=== PATIENT | female | born 1930 | race Caucasian/White ===

== ENCOUNTER 2017-02-17 11:39 | Inpatient (IN) | payer OTHER, MEDICARE ==
[~2017-02-17] VITALS: Ht 154.9 cm; Wt 65.0 kg
[~2017-02-17 11:39] MED LIST: ATEN1TAB74 PO; ATOR20TA42 PO; GABA250S PO; HYDR-2768 PO; METH500T PO; OMEP20CA5 PO; PERC7.5T13 PO; REST30CA PO
[2017-02-17 11:41] VITALS: BP 142/65; PULSE 76; RESP 18; TEMP 100.1; O2SAT 94
--- NOTE | 2017-02-17 11:47 | PD ---
HPI Chief Complaint: Fall Time Seen by Provider: 11:47 Travel History International Travel<30 days: No Contact w/Intl Traveler<30days: No Traveled to known affect area: No History of Present Illness HPI 86-year-old female brought in by daughter status post unwitnessed fall this morning. She denies hitting her head or having syncope. Patient has complaints of bilateral mild hip discomfort, but is able to stand with assistance. She denies headache, dizziness, nausea, vomiting, or other symptoms. Daughters feels that her right hand seems clumsy, and she dropped a glass of water earlier prior to arrival. EMS was called at first, and patient was assessed, and blood sugar at that time was 151. Patient arrived with her daughter via POV. Currently patient feels her normal self, however she is a poor historian. She is allergic to bacitracin, neomycin, and polymyxin B. PFSH Past Medical History High Cholesterol: Yes GERD: Yes Genitourinary: Yes (HX. OF UTI) Hypertension: Yes Social History Alcohol Use: Yes Tobacco Use: No Allergies-Medications (Allergen,Severity, Reaction): Coded Allergies: bacitracin (Verified Allergy, Intermediate, Respiratory Failure, 02/17/17) neomycin (Verified Allergy, Intermediate, Respiratory Failure, 02/17/17) polymyxin B (Verified Allergy, Intermediate, Respiratory Failure, 02/17/17 ) Reported Meds & Prescriptions Reported Meds & Active Scripts Active Reported Acidophilus (Probiotic Product) 1 Chew 1 Tab PO DAILY Bactrim DS (Sulfamethoxazole-Trimethoprim) 800-160 Mg Tab 1 Tab PO BID Vitamin B-12 (Cyanocobalamin) 500 Mcg Tab 500 Mcg PO DAILY [Cranberry 8,400mg] 1 Tab PO DAILY Fish Oil 1000 mg ([place]-3 Fatty Acids) 300 Mg-1,000 Mg Cap 1,000 Mg PO DAILY Aspirin Adult Low Strength (Aspirin) 81 Mg Tabdr 81 Mg PO DAILY Calcium + D3 (Calcium Carbonate-Cholecalciferol) 600-200 Mg-Unit Tab 1 Tab PO DAILY Remeron (Mirtazapine) 15 Mg Tab 7.5 Mg PO HS Ms Contin (Morphine Sulfate) 15 Mg Tab 15 Mg PO BID Norvasc (Amlodipine Besylate) 5 Mg Tab 5 Mg PO DAILY Detrol (Tolterodine Tartrate) 2 Mg Tab 2 Mg PO DAILY Benicar (Olmesartan) 20 Mg Tab 20 Mg PO DAILY Tenormin (Atenolol) 50 Mg Tab 50 Mg PO BID Lipitor (Atorvastatin Calcium) 20 Mg Tab 20 Mg PO HS Methyldopa 500 Mg Tab 500 Mg PO BID Gabapentin 300 Mg Cap 300 Mg PO TID Review of Systems ROS Limitations: Poor Historian Except as stated in HPI: all other systems reviewed are Neg General / Constitutional: No: Fever, Chills Eyes: No: Diploplia, Blurred Vision, Photophobia, Blind Spots, Visual changes, Blindness HENT: Positive: Lightheadedness, No: Headaches, Vertigo, Sore Throat, Rhinitis , Rhinorrhea, Congestion, Nosebleed, Neck Stiffness, Neck Pain, Dental Difficulties, Earache Cardiovascular: No: Chest Pain or Discomfort, Palpitations, Irregular Rhythm, Tachycardia, Dyspnea on exertion Respiratory: No: Cough, Shortness of Breath, Wheezing Gastrointestinal: No: Nausea, Vomiting, Diarrhea, Abdominal Pain Genitourinary: No: Dysuria Musculoskeletal: No: Pain Skin: No Rash Neurologic: No: Weakness Psychiatric: No: Depression Endocrine: No: Polydipsia Hematologic/Lymphatic: No: Easy Bruising Physical Exam Narrative GENERAL: Patient appears in no obvious distress. Patient is noted to be able to transfer from wheelchair to bed without significant difficulty. SKIN: Warm and dry. Normal color. Normal turgor. No signs of acute trauma. HEAD: Atraumatic. Normocephalic. Nontender. EYES: Pupils equal and round. No scleral icterus. No injection or drainage. No obvious nystagmus. ENT: No nasal bleeding or discharge. Mucous membranes pink and moist. No dental injury. Pharynx is clear. Airway is patent. NECK: Trachea midline. No bony tenderness or step-off. Range of motion is full and nontender. CARDIOVASCULAR: Regular rate and rhythm. No murmurs gallops or rubs appreciated this time. RESPIRATORY: No accessory muscle use. Clear to auscultation. Breath sounds equal bilaterally. GASTROINTESTINAL: Abdomen soft, non-tender, nondistended. Hepatic and splenic margins not palpable. MUSCULOSKELETAL: Extremities without clubbing, cyanosis, or edema. No obvious deformities. NEUROLOGICAL: Awake and alert. No obvious cranial nerve deficits. Motor grossly within normal limits. Fine motor skills seem somewhat diminished on the right with finger to nose testing, but no obvious findings in the left upper extremity, or lower extremities bilaterally. Patient is able to smile without facial droop. Five out of 5 muscle strength in the arms and legs. Normal speech. PSYCHIATRIC: Appropriate mood and affect; insight and judgment normal. Data Data Last Documented VS Vital Signs Date Time Temp Pulse Resp B/P (MAP) Pulse Ox O2 Delivery O2 Flow Rate FiO2 02/17/17 15:22 68 16 117/56 (76) 92 Room Air 02/17/17 11:41 100.1 Orders Orders Electrocardiogram (02/17/17 11:53) Complete Blood Count With Diff (02/17/17 11:53) Comprehensive Metabolic Panel (02/17/17 11:53) Magnesium (Mg) (02/17/17 11:53) Ckmb (Isoenzyme) Profile (02/17/17 11:53) Troponin I (02/17/17 11:53) Act Partial Throm Time (Ptt) (02/17/17 11:53) Prothrombin Time / Inr (Pt) (02/17/17 11:53) Urinalysis - C+S If Indicated (02/17/17 11:53) Chest, Single Ap (02/17/17 11:53) Ct Brain W/O Iv Contrast(Rout) (02/17/17 11:53) Ecg Monitoring (02/17/17 11:53) Iv Access Insert/Monitor (02/17/17 11:53) Oximetry (02/17/17 11:53) Sodium Chloride 0.9% Flush (Ns Flush) (02/17/17 12:00) Orthostatic Vital Signs (02/17/17 11:53) Sodium Chlorid 0.9% 500 Ml Inj (Ns 500 M (02/17/17 12:00) Cath For Specimen (02/17/17 12:58) CKMB (02/17/17 12:27) CKMB% (02/17/17 12:27) Labs Laboratory Tests Test 02/17/17 12:27 02/17/17 13:15 White Blood Count 15.3 TH/MM3 Red Blood Count 3.75 MIL/MM3 Hemoglobin 11.6 GM/DL Hematocrit 35.2 % Mean Corpuscular Volume 93.8 FL Mean Corpuscular Hemoglobin 30.9 PG Mean Corpuscular Hemoglobin Concent 32.9 % Red Cell Distribution Width 14.1 % Platelet Count 233 TH/MM3 Mean Platelet Volume 7.6 FL Neutrophils (%) (Auto) 82.1 % Lymphocytes (%) (Auto) 10.2 % Monocytes (%) (Auto) 6.0 % Eosinophils (%) (Auto) 1.2 % Basophils (%) (Auto) 0.5 % Neutrophils # (Auto) 12.5 TH/MM3 Lymphocytes # (Auto) 1.6 TH/MM3 Monocytes # (Auto) 0.9 TH/MM3 Eosinophils # (Auto) 0.2 TH/MM3 Basophils # (Auto) 0.1 TH/MM3 CBC Comment DIFF FINAL Differential Comment Prothrombin Time 10.5 SEC Prothromb Time International Ratio 1.0 RATIO Activated Partial Thromboplast Time 24.5 SEC Blood Urea Nitrogen 46 MG/DL Creatinine 2.04 MG/DL Random Glucose 124 MG/DL Total Protein 6.5 GM/DL Albumin 3.1 GM/DL Calcium Level 8.3 MG/DL Magnesium Level 2.7 MG/DL Alkaline Phosphatase 78 U/L Aspartate Amino Transf (AST/SGOT) 30 U/L Alanine Aminotransferase (ALT/SGPT) 30 U/L Total Bilirubin 0.4 MG/DL Sodium Level 135 MEQ/L Potassium Level 5.1 MEQ/L Chloride Level 104 MEQ/L Carbon Dioxide Level 26.6 MEQ/L Anion Gap 4 MEQ/L Estimat Glomerular Filtration Rate 23 ML/MIN Total Creatine Kinase 665 U/L Creatine Kinase MB 3.6 NG/ML Creatine Kinase MB % 0.5 % Troponin I LESS THAN 0.02 NG/ML Urine Color YELLOW Urine Turbidity CLEAR Urine pH 5.5 Urine Specific [place] 1.017 Urine Protein NEG mg/dL Urine Glucose (UA) NEG mg/dL Urine Ketones NEG mg/dL Urine Occult Blood TRACE Urine Nitrite NEG Urine Bilirubin NEG Urine Urobilinogen 2.0 MG/DL Urine Leukocyte Esterase NEG Urine RBC 15 /hpf Urine WBC LESS THAN 1 /hpf Urine Hyaline Casts 3 /lpf Microscopic Urinalysis Comment CULT NOT INDICATED MDM Medical Decision Making Medical Screen Exam Complete: Yes Emergency Medical Condition: Yes Medical Record Reviewed: Yes Differential Diagnosis Syncopal episode. Dehydration. TIA. Narrative Course Patient appears medically stable at time of exam. EKG and chest x-ray are ordered. X-rays of the hips and pelvis are not felt warranted based on my exam. CT of the head is ordered. Labs ordered including CBC, CMP, cardiac panel, and proBNP. Urinalysis as well. Patient is given 500 mg normal saline bolus. Orthostatics were ordered. CBC is remarkable for leukocytosis of 15.3. Coagulation studies are normal. CMP shows sodium 135, anion gap of 4, BUN of 46, creatinine of 2.04 which is significantly elevated from previous labs. GFR is estimated at 23. Random glucose is 124, calcium is 8.3, magnesium is 2.7, troponin is less than 0.02, creatinine kinase however is elevated at 665. Patient is discussed with Dr. Marroquin, who sees the patient as well with me. Patient currently on Bactrim DS twice a day 5 days for urinalysis. Urinalysis is improved today. Attempt to inability patient is performed showing the patient to be very unsteady, with noted jerky movements. This was visualized by myself, nursing staff, and Dr. Marroquin. It's at this point the patient was felt to need admission for observation, physical therapy review, and possible MRI. Diagnosis Primary Impression: Syncope and collapse Additional Impressions: Renal insufficiency Unable to ambulate Admitting Information Admitting Physician Requests: Observation Additional Instructions: Urinalysis is improved today. Patient is felt stable for discharge home with close follow-up. Patient is encouraged to drink plenty of fluids. Patient should follow-up with her primary care physician next week or return to emergency department as needed. Med/Other Pt SpecificInfo: No Change to Meds Condition: Stable Wilfrido Jones Feb 17, 2017 11:47
[2017-02-17] MEDS ORDERED: SODIUM CHLORID 0.9% 500 ML INJ 500 ML IV ONE (12:00)
[2017-02-17] MEDS ORDERED: SODIUM CHLORIDE 0.9% FLUSH 10 ML FLUSH IVF PRN (12:00)
[2017-02-17 12:15] VITALS: BP_SYST 128; BP_SYST 132; BP_SYST 146; BP_DIAS 58; BP_DIAS 59; BP_DIAS 63; RESP 19; RESP 22; RESP 26
[2017-02-17] MEDS ORDERED: FISH100020 PO (12:34)
[2017-02-17] MEDS ORDERED: MS C15TA7 PO (12:34)
[2017-02-17] MEDS ORDERED: CALC600T10 PO (12:34)
[2017-02-17] MEDS ORDERED: GABA300C5 PO (12:34)
[2017-02-17] MEDS ORDERED: REME15TA PO (12:34)
[2017-02-17] MEDS ORDERED: OLME1TAB PO (12:34)
[2017-02-17] MEDS ORDERED: ASPI81TA16 PO (12:34)
[2017-02-17] MEDS ORDERED: AMLO5 PO (12:34)
[2017-02-17] MEDS ORDERED: PROB1CHW2 PO (12:34)
[2017-02-17] MEDS ORDERED: BACT800T5 PO (12:34)
[2017-02-17] MEDS ORDERED: METH500T PO (12:34)
[2017-02-17] MEDS ORDERED: DETR2TAB PO (12:34)
[2017-02-17] MEDS ORDERED: VITA500T4 PO (12:34)
[2017-02-17] MEDS ORDERED: ATEN1TAB74 PO (12:34)
[2017-02-17] MEDS ORDERED: CRANBERRY 8400 MG PO (12:34)
[2017-02-17] MEDS ORDERED: LIPI20TA PO (12:34)
[2017-02-17 12:40] LABS: AUTOMATED NEUTROPHIL # 12.5 TH/MM3 (1.8-7.7); BASOPHIL # 0.1 TH/MM3 (0-0.2); BASOPHIL % 0.5 % (0.0-2.0); EOSINOPHIL # 0.2 TH/MM3 (0-0.4); EOSINOPHIL % 1.2 % (0.0-4.0); HEMATOCRIT 35.2 % (35.0-46.0); HEMO FLAGS DIFF FINAL; LYMPH % 10.2 % (9.0-44.0); LYMPHOCYTE # 1.6 TH/MM3 (1.0-4.8); MEAN CELL VOLUME 93.8 FL (80.0-100.0); MEAN CORPUSCULAR HEMOGLOBIN 30.9 PG (27.0-34.0); MEAN CORPUSCULAR HGB CONC 32.9 % (32.0-36.0); NEUT % 82.1 % (16.0-70.0); PLATELET COUNT 233 TH/MM3 (150-450); RED BLOOD COUNT 3.75 MIL/MM3 (4.00-5.30); RED CELL DISTRIBUTION WIDTH 14.1 % (11.6-17.2); WHITE BLOOD COUNT 15.3 TH/MM3 (4.0-11.0)
[2017-02-17 12:53] LABS: APTT (PATIENT) 24.5 SEC (24.3-30.1); PROTHROMBIN TIME - PATIENT 10.5 SEC (9.8-11.6)
[2017-02-17 12:59] LABS: ANION GAP 4 MEQ/L (5-15); AST (GOT) 30 U/L (15-37); BICARBONATE 26.6 MEQ/L (21.0-32.0); BLOOD UREA NITROGEN 46 MG/DL (7-18); CHLORIDE 104 MEQ/L (98-107); GLOMERULAR FILTRATION RATE 23 ML/MIN (>89); MAGNESIUM 2.7 MG/DL (1.5-2.5); POTASSIUM 5.1 MEQ/L (3.5-5.1); SODIUM (NA) 135 MEQ/L (136-145)
[2017-02-17 13:00] LABS: ALT (GPT) 30 U/L (10-53)
[2017-02-17 13:03] LABS: ALKALINE PHOSPHATASE 78 U/L (45-117); CREATINE KINASE 665 U/L (26-192); TOTAL BILIRUBIN ADULT 0.4 MG/DL (0.2-1.0)
--- NOTE | 2017-02-17 13:03 | RADRPT ---
EXAM DATE/TIME: 02/17/2017 12:36 [facility] COMPARISON: No previous studies available for comparison. INDICATIONS : Head pain due to syncope. RADIATION DOSE: 35.56 CTDIvol (mGy) MEDICAL HISTORY : Hypertension. Reflex. SURGICAL HISTORY : None. ENCOUNTER: Initial ACUITY: 1 day PAIN SCALE: 4/10 LOCATION: Bilateral cranial TECHNIQUE: Multiple contiguous axial images were obtained of the head. Using automated exposure control and adj ustment of the mA and/or kV according to patient size, radiation dose was kept as low as reasonably a chievable to obtain optimal diagnostic quality images. DICOM format image data is available electro nically for review and comparison. FINDINGS: There is marked central and cortical atrophy with dilatation of ventricular and sulcal spaces. There is no parenchymal hemorrhage, acute infarction or mass lesion identified. There are no extra-axial fluid collections appreciated. The posterior fossa is unremarkable with midline fourth ventricle. T he portion of the orbits and paranasal sinuses visualized are unremarkable. CONCLUSION: No acute disease. Gal Mitchell MD on February 17, 2017 at 13:01 Board Certified Radiologist. This report was verified electronically.
--- NOTE | 2017-02-17 13:08 | RADRPT ---
EXAM DATE/TIME: 02/17/2017 12:49 [facility] COMPARISON: No previous studies available for comparison. INDICATIONS : Dizziness and lightheaded. MEDICAL HISTORY : None. SURGICAL HISTORY : None. ENCOUNTER: Initial ACUITY: 1 day PAIN SCORE: 0/10 LOCATION: Bilateral chest FINDINGS: A single view of the chest demonstrates the lungs to be symmetrically aerated without evidence of mas s, infiltrate or effusion. The cardiomediastinal contours are unremarkable. Osseous structures are intact. CONCLUSION: 1. No acute cardiopulmonary disease. Aleksandar Simpson MD on February 17, 2017 at 13:05 Board Certified Radiologist. This report was verified electronically.
[2017-02-17 13:16] LABS: CKMB 3.6 NG/ML (0.5-3.6)
[2017-02-17 14:47] LABS: BLOOD, URINE TRACE (NEG); COMMENT (UR) CULT NOT INDICATED; CULTURE IF INDICATED CULT NOT INDICATED; GLUCOSE,URINE NEG (NEG); HYALINE CAST, URINE 3 /lpf (RARE); KETONE, URINE NEG (NEG); NITRITE,URINE NEG (NEG); PH, URINE 5.5 (5.0-8.5); URINE COLOR YELLOW (YELLW/STRAW)
--- NOTE | 2017-02-17 15:04 | PD ---
Data Data Last Documented VS Vital Signs Date Time Temp Pulse Resp B/P (MAP) Pulse Ox O2 Delivery O2 Flow Rate FiO2 02/17/17 12:15 73 19 146/63 (90) 74 26 132/59 (83) 77 22 128/58 (81) 02/17/17 11:41 100.1 94 Orders Orders Electrocardiogram (02/17/17 11:53) Complete Blood Count With Diff (02/17/17 11:53) Comprehensive Metabolic Panel (02/17/17 11:53) Magnesium (Mg) (02/17/17 11:53) Ckmb (Isoenzyme) Profile (02/17/17 11:53) Troponin I (02/17/17 11:53) Act Partial Throm Time (Ptt) (02/17/17 11:53) Prothrombin Time / Inr (Pt) (02/17/17 11:53) Urinalysis - C+S If Indicated (02/17/17 11:53) Chest, Single Ap (02/17/17 11:53) Ct Brain W/O Iv Contrast(Rout) (02/17/17 11:53) Ecg Monitoring (02/17/17 11:53) Iv Access Insert/Monitor (02/17/17 11:53) Oximetry (02/17/17 11:53) Sodium Chloride 0.9% Flush (Ns Flush) (02/17/17 12:00) Orthostatic Vital Signs (02/17/17 11:53) Sodium Chlorid 0.9% 500 Ml Inj (Ns 500 M (02/17/17 12:00) Cath For Specimen (02/17/17 12:58) CKMB (02/17/17 12:27) CKMB% (02/17/17 12:27) Ed Discharge Order (02/17/17 14:55) Labs Laboratory Tests Test 02/17/17 12:27 02/17/17 13:15 White Blood Count 15.3 TH/MM3 Red Blood Count 3.75 MIL/MM3 Hemoglobin 11.6 GM/DL Hematocrit 35.2 % Mean Corpuscular Volume 93.8 FL Mean Corpuscular Hemoglobin 30.9 PG Mean Corpuscular Hemoglobin Concent 32.9 % Red Cell Distribution Width 14.1 % Platelet Count 233 TH/MM3 Mean Platelet Volume 7.6 FL Neutrophils (%) (Auto) 82.1 % Lymphocytes (%) (Auto) 10.2 % Monocytes (%) (Auto) 6.0 % Eosinophils (%) (Auto) 1.2 % Basophils (%) (Auto) 0.5 % Neutrophils # (Auto) 12.5 TH/MM3 Lymphocytes # (Auto) 1.6 TH/MM3 Monocytes # (Auto) 0.9 TH/MM3 Eosinophils # (Auto) 0.2 TH/MM3 Basophils # (Auto) 0.1 TH/MM3 CBC Comment DIFF FINAL Differential Comment Prothrombin Time 10.5 SEC Prothromb Time International Ratio 1.0 RATIO Activated Partial Thromboplast Time 24.5 SEC Blood Urea Nitrogen 46 MG/DL Creatinine 2.04 MG/DL Random Glucose 124 MG/DL Total Protein 6.5 GM/DL Albumin 3.1 GM/DL Calcium Level 8.3 MG/DL Magnesium Level 2.7 MG/DL Alkaline Phosphatase 78 U/L Aspartate Amino Transf (AST/SGOT) 30 U/L Alanine Aminotransferase (ALT/SGPT) 30 U/L Total Bilirubin 0.4 MG/DL Sodium Level 135 MEQ/L Potassium Level 5.1 MEQ/L Chloride Level 104 MEQ/L Carbon Dioxide Level 26.6 MEQ/L Anion Gap 4 MEQ/L Estimat Glomerular Filtration Rate 23 ML/MIN Total Creatine Kinase 665 U/L Creatine Kinase MB 3.6 NG/ML Creatine Kinase MB % 0.5 % Troponin I LESS THAN 0.02 NG/ML Urine Color YELLOW Urine Turbidity CLEAR Urine pH 5.5 Urine Specific [place] 1.017 Urine Protein NEG mg/dL Urine Glucose (UA) NEG mg/dL Urine Ketones NEG mg/dL Urine Occult Blood TRACE Urine Nitrite NEG Urine Bilirubin NEG Urine Urobilinogen 2.0 MG/DL Urine Leukocyte Esterase NEG Urine RBC 15 /hpf Urine WBC LESS THAN 1 /hpf Urine Hyaline Casts 3 /lpf Microscopic Urinalysis Comment CULT NOT INDICATED MDM Supervised Visit with DESTINY: Yes Narrative Course The history, exam, and medical decision-making in the associated mid-level provider note were completed with my assistance. I reviewed and agree with the findings presented. I attest that I had a [id number] encounter with the patient on the same day, and personally performed and documented my assessment and findings in the medical record. *My assessment and Findings: Send 86 year-old woman presents to the emergency department after fall. Unwitnessed. Possible syncopal and collapse. Looks well. Being treated for urinary tract infection. Labs reveal elevated creatinine. Patient states she' s been told she has bad kidney function on her labs in the past. No recent labs for comparison here. Recommend close outpatient follow-up. Diagnosis Primary Impression: Syncope and collapse Additional Impression: Renal insufficiency Referrals: Primary Care Physician Patient Instructions: General Instructions, Dehydration (ED), Near Syncope (ED) Additional Instruction: Urinalysis is improved today. Patient is felt stable for discharge home with close follow-up. Patient is encouraged to drink plenty of fluids. Patient should follow-up with her primary care physician next week or return to emergency department as needed. Disposition: 01 DISCHARGE HOME Condition: Stable Gal Marroquin MD Feb 17, 2017 15:04
[2017-02-17 15:22] VITALS: BP 117/56; PULSE 68; RESP 16; O2SAT 92
[2017-02-17] MEDS ORDERED: SODIUM CHLORIDE 0.9% FLUSH 10 ML FLUSH IV FLUSH PRN (16:00)
[2017-02-17] MEDS ORDERED: BISACODYL 10 MG SUPP RECTAL PRN (16:00)
[2017-02-17] MEDS ORDERED: NALOXONE HCL 0.4 MG/ML AMP IV PUSH PRN (16:00)
[2017-02-17] MEDS ORDERED: LACTULOSE SYRUP 20 GM/30 ML CUP PO PRN (16:00)
[2017-02-17] MEDS ORDERED: MAGNESIUM HYDROXIDE SUSP 30 ML CUP PO PRN (16:00)
[2017-02-17] MEDS ORDERED: SENNOSIDES 8.6 MG TAB PO PRN (16:00)
[2017-02-17] MEDS: SODIUM CHLOR 0.45% 1000 ML INJ 1,000 ML IV SCH ×2 (16:30→18:55)
--- NOTE | 2017-02-17 17:20 | RADRPT ---
EXAM DATE/TIME: 02/17/2017 16:33 [facility] COMPARISON: No previous studies available for comparison. INDICATIONS : Syncope. MEDICAL HISTORY : Hypercholesterolemia. Hypertension. Gastroesophageal reflux disease. COPD. SURGICAL HISTORY : Tonsillectomy. Mastoid operations bilateral. ENCOUNTER: Initial ACUITY: 1 day PAIN SCORE: 0/10 LOCATION: Bilateral neck PEAK SYSTOLIC VELOCITIES (cm/sec): ICA/CCA RATIO: Right: 1.6 Left: 1.5 ICA: Right: 132 Left: 124 CCA: Right: 84 Left: 84 ECA: Right: 124 Left: 155 VERTEBRAL: Right: 105 antegrade Left: 53 antegrade Elevated flow velocities and ICA/CCA ratios have been found to correlate with increased degrees of vessel stenosis, calculated as percentage of diameter relative to a normal segment of distal ICA/CCA FINDINGS: RIGHT CAROTID: No significant stenosis is visualized. Moderate diffuse atherosclerotic disease. The waveforms are w ithin normal limits. LEFT CAROTID: No significant stenosis is visualized. Moderate diffuse atherosclerotic disease. The waveforms are within normal limits. VERTEBRAL ARTERIES: Antegrade flow is seen in both vertebral arteries. MISCELLANEOUS: None. CONCLUSION: There is moderate atherosclerotic disease. No definite two-dimensional or hemodynamic significant yaneth nosis is identified. Gal Mitchell MD on February 17, 2017 at 17:17 Board Certified Radiologist. This report was verified electronically.
[2017-02-17 18:31] VITALS: BP 138/65; PULSE 70; RESP 18; TEMP 98.6; O2SAT 91
--- NOTE | 2017-02-17 20:00 | HHI.HP ---
[facility] Primary Care Physician Angel Modi MD Admission Diagnosis Syncope/Unable to Ambulate/Increased Creatinine Diagnoses: Travel History International Travel<30 Days: No Contact w/Intl Traveler <30 Da: No Traveled to Known Affected Are: No History of Present Illness 86-year-old female with a history of chronic pain, recurrent UTIs, hypertension , hyperlipidemia, GERD, who presents having been found by daughter this morning around 5 AM. Vision is a poor historian. She says she was lightheaded last night, and is not sure what happened. She does say that she began Bactrim for a supposed UTI on Monday, her symptoms being increased urination, without dysuria. Says that increased urination has improved. She denies any fevers, chills, chest pain, shortness of breath. She does report some lightheadedness walking to the bathroom with assistance today. She denies taking any extra pain medication, however cannot tell me exactly how much medication she takes. I spoke with daughter outside room and she said that patient may have been taking Dilaudid that she was prescribed in the past for pain. Review of Systems Performed and negative except for history of present illness and past medical history. Past Family Social History Past Medical History Hypertension Chronic pain GERD History of recurrent UTIs Past Surgical History Patient had right wrist surgery for de Quervain's tenosynovitis. hip replacement. Reported Medications Reported Meds & Active Scripts Active Reported Acidophilus (Probiotic Product) 1 Chew 1 Tab PO DAILY Bactrim DS (Sulfamethoxazole-Trimethoprim) 800-160 Mg Tab 1 Tab PO BID Vitamin B-12 (Cyanocobalamin) 500 Mcg Tab 500 Mcg PO DAILY [Cranberry 8,400mg] 1 Tab PO DAILY Fish Oil 1000 mg ([place]-3 Fatty Acids) 300 Mg-1,000 Mg Cap 1,000 Mg PO DAILY Aspirin Adult Low Strength (Aspirin) 81 Mg Tabdr 81 Mg PO DAILY Calcium + D3 (Calcium Carbonate-Cholecalciferol) 600-200 Mg-Unit Tab 1 Tab PO DAILY Remeron (Mirtazapine) 15 Mg Tab 7.5 Mg PO HS Ms Contin (Morphine Sulfate) 15 Mg Tab 15 Mg PO BID Norvasc (Amlodipine Besylate) 5 Mg Tab 5 Mg PO DAILY Detrol (Tolterodine Tartrate) 2 Mg Tab 2 Mg PO DAILY Benicar (Olmesartan) 20 Mg Tab 20 Mg PO DAILY Tenormin (Atenolol) 50 Mg Tab 50 Mg PO BID Lipitor (Atorvastatin Calcium) 20 Mg Tab 20 Mg PO HS Methyldopa 500 Mg Tab 500 Mg PO BID Gabapentin 300 Mg Cap 300 Mg PO TID Allergies: Coded Allergies: bacitracin (Verified Allergy, Intermediate, Respiratory Failure, 02/17/17) neomycin (Verified Allergy, Intermediate, Respiratory Failure, 02/17/17) polymyxin B (Verified Allergy, Intermediate, Respiratory Failure, 02/17/17 ) Family History Mother from cancer. Father at a very old age from unknown causes. Social History Patient reports one glass of wine per night.denies any smoking. Denies any illicit drugs. Physical Exam Vital Signs Vital Signs Date Time Temp Pulse Resp B/P (MAP) Pulse Ox O2 Delivery O2 Flow Rate FiO2 02/17/17 18:31 98.6 70 18 138/65 (89) 91 02/17/17 17:55 02/17/17 15:22 68 16 117/56 (76) 92 Room Air 02/17/17 12:15 73 19 146/63 (90) 74 26 132/59 (83) 77 22 128/58 (81) 02/17/17 11:41 100.1 76 18 142/65 (90) 94 Physical Exam GENERAL: This is a well-nourished, well-developed patient, in no apparent distress. She is oriented to place, year, not to date. SKIN: No rashes, ecchymoses or lesions. Cool and dry. HEAD: Atraumatic. Normocephalic. No temporal or scalp tenderness. EYES: Pupils equal round and reactive. Extraocular motions intact. No scleral icterus. No injection or drainage. ENT: Nose without bleeding, purulent drainage or septal hematoma. Throat without erythema, tonsillar hypertrophy or exudate. Uvula midline. Airway patent. NECK: Trachea midline. No JVD or lymphadenopathy. Supple, nontender, no meningeal signs. CARDIOVASCULAR: Regular rate and rhythm without murmurs, gallops, or rubs. RESPIRATORY: Clear to auscultation. Breath sounds equal bilaterally. No wheezes , rales, or rhonchi. GASTROINTESTINAL: Abdomen soft, non-tender, nondistended. No hepato-splenomegaly , or palpable masses. No guarding. MUSCULOSKELETAL: Extremities without clubbing, cyanosis, or edema. No joint tenderness, effusion, or edema noted. No calf tenderness. Negative Homans sign bilaterally. NEUROLOGICAL: Awake and alert. Cranial nerves II through XII intact. Motor and sensory grossly within normal limits. Five out of 5 muscle strength in all muscle groups. Normal speech. Laboratory Laboratory Tests Test 02/17/17 12:27 02/17/17 13:15 White Blood Count 15.3 Red Blood Count 3.75 Hemoglobin 11.6 Hematocrit 35.2 Mean Corpuscular Volume 93.8 Mean Corpuscular Hemoglobin 30.9 Mean Corpuscular Hemoglobin Concent 32.9 Red Cell Distribution Width 14.1 Platelet Count 233 Mean Platelet Volume 7.6 Neutrophils (%) (Auto) 82.1 Lymphocytes (%) (Auto) 10.2 Monocytes (%) (Auto) 6.0 Eosinophils (%) (Auto) 1.2 Basophils (%) (Auto) 0.5 Neutrophils # (Auto) 12.5 Lymphocytes # (Auto) 1.6 Monocytes # (Auto) 0.9 Eosinophils # (Auto) 0.2 Basophils # (Auto) 0.1 CBC Comment DIFF FINAL Differential Comment Prothrombin Time 10.5 Prothromb Time International Ratio 1.0 Activated Partial Thromboplast Time 24.5 Blood Urea Nitrogen 46 Creatinine 2.04 Random Glucose 124 Total Protein 6.5 Albumin 3.1 Calcium Level 8.3 Magnesium Level 2.7 Alkaline Phosphatase 78 Aspartate Amino Transf (AST/SGOT) 30 Alanine Aminotransferase (ALT/SGPT) 30 Total Bilirubin 0.4 Sodium Level 135 Potassium Level 5.1 Chloride Level 104 Carbon Dioxide Level 26.6 Anion Gap 4 Estimat Glomerular Filtration Rate 23 Total Creatine Kinase 665 Creatine Kinase MB 3.6 Creatine Kinase MB % 0.5 Troponin I LESS THAN 0.02 Urine Color YELLOW Urine Turbidity CLEAR Urine pH 5.5 Urine Specific [place] 1.017 Urine Protein NEG Urine Glucose (UA) NEG Urine Ketones NEG Urine Occult Blood TRACE Urine Nitrite NEG Urine Bilirubin NEG Urine Urobilinogen 2.0 Urine Leukocyte Esterase NEG Urine RBC 15 Urine WBC LESS THAN 1 Urine Hyaline Casts 3 Microscopic Urinalysis Comment CULT NOT INDICATED Urine Opiates Screen POS Urine Barbiturates Screen NEG Urine Amphetamines Screen NEG Urine Benzodiazepines Screen NEG Urine Cocaine Screen NEG Urine Cannabinoids Screen NEG Result Diagram: 02/17/17 1227 02/17/17 1227 Imaging Last Impressions Head CT 02/17/17 1153 Signed Impressions: Service Date/Time: Friday, February 17, 2017 12:36 - CONCLUSION: No acute disease. Gal Mitchell MD Chest X-Ray 02/17/17 1153 Signed Impressions: Service Date/Time: Friday, February 17, 2017 12:49 - CONCLUSION: 1. No acute cardiopulmonary disease. Aleksandar Simpson MD Carotid Artery Ultrasound 02/17/17 0000 Signed Impressions: Service Date/Time: Friday, February 17, 2017 16:33 - CONCLUSION: There is moderate atherosclerotic disease. No definite two-dimensional or hemodynamic significant stenosis is identified. MD Margarita Phillips VTE Risk Assessment Caprini VTE Risk Assessment: Mod/High Risk (score >= 2) Caprini Risk Assessment Model Point Value = 1 Point Value = 2 Point Value = 3 Point Value = 5 Age 41-60 Minor surgery BMI > 25 kg/m2 Swollen legs Varicose veins or History of unexplained or recurrent spontaneous Oral contraceptives or hormone replacement Sepsis (< 1 month) Serious lung disease, including pneumonia (< 1 month) Abnormal pulmonary function Acute myocardial infarction Congestive heart failure (< 1 month) History of inflammatory bowel disease Medical patient at bed rest Age 61-74 Arthroscopic surgery Major open surgery (> 45 min) Laparoscopic surgery (> 45 min) Malignancy Confined to bed (> 72 hours) Immobilizing plaster cast Central venous access Age >= 75 History of VTE Family history of VTE Factor V Leiden Prothrombin [id number] Lupus anticoagulant Anticardiolipin antibodies Elevated serum homocysteine Heparin-induced thrombocytopenia Other congenital or acquired thrombophilia Stroke (< 1 month) Elective arthroplasty Hip, pelvis, or leg fracture Acute spinal cord injury (< 1 month) Prophylaxis Regimen Total Risk Factor Score Risk Level Prophylaxis Regimen 0-1 Low Early ambulation 2 Moderate Order ONE of the following: *Sequential Compression Device (SCD) *Heparin 5000 units SQ BID 3-4 Higher Order ONE of the following medications: *Heparin 5000 units SQ TID *Enoxaparin/Lovenox 40 mg SQ daily (WT < 150 kg, CrCl > 30 mL/min) *Enoxaparin/Lovenox 30 mg SQ daily (WT < 150 kg, CrCl > 10-29 mL/min) *Enoxaparin/Lovenox 30 mg SQ BID (WT < 150 kg, CrCl > 30 mL/min) AND/OR *Sequential Compression Device (SCD) 5 or more Highest Order ONE of the following medications: *Heparin 5000 units SQ TID (Preferred with Epidurals) *Enoxaparin/Lovenox 40 mg SQ daily (WT < 150 kg, CrCl > 30 mL/min) *Enoxaparin/Lovenox 30 mg SQ daily (WT < 150 kg, CrCl > 10-29 mL/min) *Enoxaparin/Lovenox 30 mg SQ BID (WT < 150 kg, CrCl > 30 mL/min) AND *Sequential Compression Device (SCD) Assessment and Plan Assessment and Plan //Status post unwitnessed fall/syncopal episode. //Generalized weakness. -Syncopal workup with carotid ultrasound, echocardiogram. Suspect this is likely secondary to polypharmacy, gabapentin toxicity secondary to renal failure. //Possible acute kidney injury. -Creatinine 2. Unknown baseline. Urinalysis without signs of infection. Possibly secondary to over controlled blood pressure/dehydration. Will start on IV fluids. //Elevated CK. In the 600s. Possibly secondary to muscle injury from fall. Patient was found down. We will continue to monitor. Start IV fluids. //Leukocytosis. Leukocytes 15 on admission. This is likely secondary to fall. Urinalysis does not appear infectious. Patient denies any urinary symptoms. Patient has no symptoms of infection. We'll continue to monitor. //Polypharmacy. -Patient is on multiple narcotics, gabapentin which together could be contributing to her symptoms. Patient is agreeable to home health for medication management. //Recent UTI. Patient's only symptom was increased urination. I doubt this is a UTI, was likely incontinence. We'll hold off on patient's Detrol as well. Urinalysis here did not appear infectious. Hold off on antibiotics for now. //Hypertension. The pressure. Acceptable, however below baseline. We'll hold off on blood pressure meds for now. Expect she is not on realistic doses of her medications at home due to noncompliance. We'll recheck Tomorrow morning. Chronic. //GERD. Chronic. Continue PPI Discussed Condition With Patient, nurse, daughter at bedside, ED physician Physician Certification 2 Midnight Certification Type: Admission for Inpatient Services Order for Inpatient Services The services are ordered in accordance with Medicare regulations or non- Medicare payer requirements, as applicable. In the case of services not specified as inpatient-only, they are appropriately provided as inpatient services in accordance with the 2-midnight benchmark. Estimated LOS (days): 2 days is the estimated time the patient will need to remain in the hospital, assuming treatment plan goals are met and no additional complications. Post-Hospital Plan: Not yet determined Braulio Novoa MD Feb 17, 2017 19:59
[2017-02-17] MEDS: SODIUM CHLORIDE 0.9% FLUSH 10 ML FLUSH IV FLUSH SCH (20:44)
[2017-02-17 20:51] LABS: CKMB 2.3 NG/ML (0.5-3.6)
[2017-02-18] VITALS: BP 126/55; PULSE 66; RESP 20; TEMP 98.1; O2SAT 94
[2017-02-18 01:26] LABS: CREATINE KINASE 679 U/L (26-192)
[2017-02-18 01:41] LABS: CKMB 1.8 NG/ML (0.5-3.6)
[2017-02-18 04:00] VITALS: BP 116/63; PULSE 68; RESP 20; TEMP 98.7; O2SAT 92
[2017-02-18] MEDS: SODIUM CHLOR 0.45% 1000 ML INJ 1,000 ML IV SCH ×2 (05:18→18:38)
[2017-02-18 08:25] VITALS: BP 146/71; PULSE 73; RESP 20; TEMP 98.5; O2SAT 93
[2017-02-18] MEDS: PANTOPRAZOLE SOD 20 MG DELAYED RELEASE TAB PO SCH (08:28)
[2017-02-18] MEDS: SODIUM CHLORIDE 0.9% FLUSH 10 ML FLUSH IV FLUSH SCH ×2 (08:28→20:00)
[2017-02-18 08:38] LABS: AUTOMATED NEUTROPHIL # 8.6 TH/MM3 (1.8-7.7); BASOPHIL % 0.4 % (0.0-2.0); EOSINOPHIL # 0.1 TH/MM3 (0-0.4); EOSINOPHIL % 1.4 % (0.0-4.0); HEMATOCRIT 30.9 % (35.0-46.0); HEMO FLAGS DIFF FINAL; LYMPHOCYTE # 1.3 TH/MM3 (1.0-4.8); MEAN CELL VOLUME 93.2 FL (80.0-100.0); MEAN CORPUSCULAR HEMOGLOBIN 31.3 PG (27.0-34.0); MEAN CORPUSCULAR HGB CONC 33.6 % (32.0-36.0); MONO % 5.4 % (0.0-8.0); NEUT % 80.8 % (16.0-70.0); PLATELET COUNT 218 TH/MM3 (150-450); RED BLOOD COUNT 3.31 MIL/MM3 (4.00-5.30); RED CELL DISTRIBUTION WIDTH 14.1 % (11.6-17.2); WHITE BLOOD COUNT 10.6 TH/MM3 (4.0-11.0)
[2017-02-18] MEDS ORDERED: ASPIRIN EC 81 MG TABEC PO SCH (09:00)
[2017-02-18 09:03] LABS: ALT (GPT) 24 U/L (10-53); ANION GAP 8 MEQ/L (5-15); AST (GOT) 29 U/L (15-37); BICARBONATE 22.4 MEQ/L (21.0-32.0); BLOOD UREA NITROGEN 38 MG/DL (7-18); CHLORIDE 108 MEQ/L (98-107); GLOMERULAR FILTRATION RATE 34 ML/MIN (>89); POTASSIUM 4.4 MEQ/L (3.5-5.1); SODIUM (NA) 138 MEQ/L (136-145)
[2017-02-18 09:06] LABS: ALKALINE PHOSPHATASE 74 U/L (45-117); TOTAL BILIRUBIN ADULT 0.7 MG/DL (0.2-1.0)
--- NOTE | 2017-02-18 09:39 | HHI.PR ---
Subjective Remarks This is a pleasant 86 y/o female admitted 02/17/17 she has Chronic pain, Recurrent UTI, Hypertension, Hyperlipidemia, GERD, he was on Bactrim as outpatient for UTI, status post Fall/Syncope, workup started, also probable acute on chronic kidney injury, Rhabdomyolysis, Leukocytosis, Polypharmacy, seen in her bedroom in the presence of her Daughter Mrs. Marivel Blanco complaint of left hip pain, awaiting final recommendations by PT for discharge. blood pressure uncontrolled at this time, but was controlled in am will continue Objective Vital Signs Date Time Temp Pulse Resp B/P (MAP) Pulse Ox O2 Delivery O2 Flow Rate FiO2 02/18/17 08:25 98.5 73 20 146/71 (96) 93 02/18/17 04:00 98.7 68 20 116/63 (80) 92 02/18/17 00:00 98.1 66 20 126/55 (78) 94 02/17/17 18:31 98.6 70 18 138/65 (89) 91 02/17/17 17:55 02/17/17 15:22 68 16 117/56 (76) 92 Room Air 02/17/17 12:15 73 19 146/63 (90) 74 26 132/59 (83) 77 22 128/58 (81) 02/17/17 11:41 100.1 76 18 142/65 (90) 94 I/O 02/17/17 02/17/17 02/17/17 02/18/17 02/18/17 02/18/17 07:00 15:00 23:00 07:00 15:00 23:00 Intake Total 500 ml Balance 500 ml Intake IV Total 500 ml # Voids 1 1 Result Diagram: 02/18/17 0755 02/18/17 0755 Imaging Last Impressions Head CT 02/17/17 1153 Signed Impressions: Service Date/Time: Friday, February 17, 2017 12:36 - CONCLUSION: No acute disease. Gal Mitchell MD Chest X-Ray 02/17/17 1153 Signed Impressions: Service Date/Time: Friday, February 17, 2017 12:49 - CONCLUSION: 1. No acute cardiopulmonary disease. Aleksandar Simpson MD Carotid Artery Ultrasound 02/17/17 0000 Signed Impressions: Service Date/Time: Friday, February 17, 2017 16:33 - CONCLUSION: There is moderate atherosclerotic disease. No definite two-dimensional or hemodynamic significant stenosis is identified. Gal Mitchell MD Procedures None Other Results Laboratory Tests Test 02/17/17 12:27 02/17/17 13:15 02/18/17 00:52 02/18/17 07:55 Prothrombin Time 10.5 SEC Prothromb Time International Ratio 1.0 RATIO Activated Partial Thromboplast Time 24.5 SEC Blood Urea Nitrogen 46 MG/DL 38 MG/DL Creatinine 2.04 MG/DL 1.45 MG/DL Random Glucose 124 MG/DL 93 MG/DL Total Protein 6.5 GM/DL 6.0 GM/DL Albumin 3.1 GM/DL 2.8 GM/DL Calcium Level 8.3 MG/DL 8.4 MG/DL Magnesium Level 2.7 MG/DL Alkaline Phosphatase 78 U/L 74 U/L Aspartate Amino Transf (AST/SGOT) 30 U/L 29 U/L Alanine Aminotransferase (ALT/SGPT) 30 U/L 24 U/L Total Bilirubin 0.4 MG/DL 0.7 MG/DL Sodium Level 135 MEQ/L 138 MEQ/L Potassium Level 5.1 MEQ/L 4.4 MEQ/L Chloride Level 104 MEQ/L 108 MEQ/L Carbon Dioxide Level 26.6 MEQ/L 22.4 MEQ/L Troponin I LESS THAN 0.02 NG/ML Urine Color YELLOW Urine Turbidity CLEAR Urine pH 5.5 Urine Specific [place] 1.017 Urine Protein NEG mg/dL Urine Glucose (UA) NEG mg/dL Urine Ketones NEG mg/dL Urine Occult Blood TRACE Urine Nitrite NEG Urine Bilirubin NEG Urine Urobilinogen 2.0 MG/DL Urine Leukocyte Esterase NEG Urine RBC 15 /hpf Urine WBC LESS THAN 1 /hpf Urine Hyaline Casts 3 /lpf Microscopic Urinalysis Comment CULT NOT INDICATED Urine Opiates Screen POS Urine Barbiturates Screen NEG Urine Amphetamines Screen NEG Urine Benzodiazepines Screen NEG Urine Cocaine Screen NEG Urine Cannabinoids Screen NEG Total Creatine Kinase 679 U/L Creatine Kinase MB 1.8 NG/ML Creatine Kinase MB % 0.3 % White Blood Count 10.6 TH/MM3 Red Blood Count 3.31 MIL/MM3 Hemoglobin 10.4 GM/DL Hematocrit 30.9 % Mean Corpuscular Volume 93.2 FL Mean Corpuscular Hemoglobin 31.3 PG Mean Corpuscular Hemoglobin Concent 33.6 % Red Cell Distribution Width 14.1 % Platelet Count 218 TH/MM3 Mean Platelet Volume 8.1 FL Neutrophils (%) (Auto) 80.8 % Lymphocytes (%) (Auto) 12.0 % Monocytes (%) (Auto) 5.4 % Eosinophils (%) (Auto) 1.4 % Basophils (%) (Auto) 0.4 % Neutrophils # (Auto) 8.6 TH/MM3 Lymphocytes # (Auto) 1.3 TH/MM3 Monocytes # (Auto) 0.6 TH/MM3 Eosinophils # (Auto) 0.1 TH/MM3 Basophils # (Auto) 0.0 TH/MM3 CBC Comment DIFF FINAL Differential Comment Anion Gap 8 MEQ/L Estimat Glomerular Filtration Rate 34 ML/MIN Objective Remarks GENERAL: well developed patient in no acute distress. SKIN: No rashes, ecchymoses or lesions. Cool and dry. HEAD: Atraumatic. Normocephalic. No temporal or scalp tenderness. EYES: Pupils equal round and reactive. Extraocular motions intact. No scleral icterus. No injection or drainage. ENT: Nose without bleeding, purulent drainage or septal hematoma. Throat without erythema, tonsillar hypertrophy or exudate. Uvula midline. Airway patent. NECK: Trachea midline. No JVD or lymphadenopathy. Supple, nontender, no meningeal signs. CARDIOVASCULAR: Regular rate and rhythm without murmurs, gallops, or rubs. RESPIRATORY: Clear to auscultation. Breath sounds equal bilaterally. No wheezes , rales, or rhonchi. GASTROINTESTINAL: Abdomen soft, non-tender, nondistended. No hepato-splenomegaly , or palpable masses. No guarding. MUSCULOSKELETAL: Extremities without clubbing, cyanosis, or edema. No joint tenderness, effusion, or edema noted. No calf tenderness. Negative Homans sign bilaterally. NEUROLOGICAL: Awake and alert. No focal deficits. Medications and IVs Current Medications Medications (Trade) Dose Ordered Sig/Juan Route Start Time Stop Time Status Last Admin (NS Flush) 2 ml UNSCH PRN IVF 02/17/17 12:00 Sodium Chloride 1,000 ml @ 75 mls/hr [id number] IV 02/17/17 15:58 02/17/17 16:30 (NS Flush) 2 ml UNSCH PRN IV FLUSH 02/17/17 16:00 (NS Flush) 2 ml BID IV FLUSH 02/17/17 21:00 (Narcan Inj) 0.4 mg UNSCH PRN IV PUSH 02/17/17 16:00 (Milk Of Magnesia Liq) 30 ml Q12H PRN PO 02/17/17 16:00 (Senokot) 17.2 mg Q12H PRN PO 02/17/17 16:00 (Dulcolax Supp) 10 mg DAILY PRN RECTAL 02/17/17 16:00 (Lactulose Liq) 30 ml DAILY PRN PO 02/17/17 16:00 (Protonix) 20 mg DAILY PO 02/18/17 09:00 02/18/17 08:28 (Ecotrin Ec) 81 mg DAILY PO 02/18/17 09:00 A/P Assessment and Plan 1. Status post fall/Syncopal episode, the patient complaint of weakness, following, Echocardiogram, Carotid US no pathology was suspected probable Polypharmacy, and Gabapentin toxicity on hold. 2. Acute Kidney Injury Improving, continue IV fluids, on hold SIMÓN inhibitors and diuretics. 3. Elevated CK probable secondary to Rhabdomyolysis following continue IV fluids 4. Leukocytosis improved no signs of infection 5. Polypharmacy will continue her Home Narcotics to avoid withdrawal, 6. Urinary incontinence on hold Detrol and following. 7. Hypertension Uncontrolled. will re start some of her anti-Hypertensives. //GERD. Chronic. Continue PPI Discussed Condition With patient and her Daughter Mrs. Marivel Blanco. Discharge Planning Expected by tomorrow. Jesus Oneal MD Feb 18, 2017 09:39
[2017-02-18 12:00] VITALS: BP 138/85; PULSE 84; RESP 18; TEMP 98.2; O2SAT 93
[2017-02-18 12:40] LABS: HEMOGLOBIN A1a 0.9 %; HEMOGLOBIN Ao 84.5 %; HEMOGLOBIN LA1C 2.1 %; HEMOGLOBIN P3 4.2 %
[2017-02-18 16:00] VITALS: BP 186/81; PULSE 95; RESP 18; TEMP 99; O2SAT 93
[2017-02-18] MEDS ORDERED: PILL SPLITTER OTHER PRN (17:00)
--- NOTE | 2017-02-18 17:53 | EKG ---
Date Performed: 02/17/2017 Time Performed: 13:20:01 PTAGE: 86 years EKG: Sinus rhythm WITH OCCASIONAL SUPRAVENTRICULAR PREMATURE COMPLEXES MARKED LEFT AXIS DEVIATION LOW QRS VOLTAGE IN E XTREMITY LEADS ABNORMAL ECG PREVIOUS TRACING : 10/05/1999 10.19 Compared to prior tracing no significant change DOCTOR: Jack Marie Interpretating Date/Time 02/18/2017 17:51:38
[2017-02-18] MEDS ORDERED: GABAPENTIN 300 MG CAP PO SCH (18:00)
[2017-02-18] MEDS: ATENOLOL 50 MG TAB PO SCH (19:58)
[2017-02-18] MEDS: MIRTAZAPINE 15 MG TAB PO SCH (19:58)
[2017-02-18] MEDS: METHYLDOPA 500 MG TAB PO SCH (19:59)
[2017-02-18] MEDS: ATORVASTATIN 20 MG TAB PO SCH (19:59)
[2017-02-18 20:00] VITALS: BP 181/79; RESP 17; TEMP 98.9; O2SAT 95
[2017-02-18] MEDS: MORPHINE SULFATE 15 MG CONTROLLED RELEASE TAB PO SCH (20:00)
--- NOTE | 2017-02-18 21:06 | RADRPT ---
EXAM DATE/TIME: 02/18/2017 20:32 [place] COMPARISON: No previous studies available for comparison. INDICATIONS : Patient fell three days ago, Complains of bilateral hip pain MEDICAL HISTORY : None. SURGICAL HISTORY : Right total hip ENCOUNTER: Initial ACUITY: 3 days PAIN SCORE: 5/10 LOCATION: Bilateral pelvis FINDINGS: Right total hip arthroplasty, noncemented. Some minimal heterotopic ossification in the region of th e superior capsule. Left proximal femur is intact on frontal view. The primary and secondary trabec ular pattern of the left femoral neck is intact. The bony pelvic ring is grossly intact. CONCLUSION: No evidence of recent bony injury. Ken Hicks MD on February 18, 2017 at 21:03 Board Certified Radiologist. This report was verified electronically.
[2017-02-19] VITALS (7 sets, daily range): BP systolic 97–183; BP diastolic 45–77; PULSE 62–74; RESP 16–18; TEMP 97.4–98.4; O2SAT 92–95
[2017-02-19] MEDS ORDERED: ENALAPRILAT 1.25 MG/ML VIAL IV PUSH ONE (00:45)
[2017-02-19 05:57] LABS: AUTOMATED NEUTROPHIL # 7.2 TH/MM3 (1.8-7.7); BASOPHIL % 0.3 % (0.0-2.0); EOSINOPHIL # 0.2 TH/MM3 (0-0.4); EOSINOPHIL % 1.9 % (0.0-4.0); HEMATOCRIT 30.6 % (35.0-46.0); HEMO FLAGS DIFF FINAL; LYMPHOCYTE # 1.6 TH/MM3 (1.0-4.8); MEAN CELL VOLUME 92.3 FL (80.0-100.0); MEAN CORPUSCULAR HEMOGLOBIN 31.4 PG (27.0-34.0); MONO % 8.1 % (0.0-8.0); NEUT % 73.7 % (16.0-70.0); PLATELET COUNT 240 TH/MM3 (150-450); RED BLOOD COUNT 3.31 MIL/MM3 (4.00-5.30); RED CELL DISTRIBUTION WIDTH 14.1 % (11.6-17.2); WHITE BLOOD COUNT 9.8 TH/MM3 (4.0-11.0)
[2017-02-19 06:22] LABS: BICARBONATE 23.1 MEQ/L (21.0-32.0); MAGNESIUM 2.2 MG/DL (1.5-2.5); POTASSIUM 4.1 MEQ/L (3.5-5.1)
[2017-02-19] MEDS: SODIUM CHLOR 0.45% 1000 ML INJ 1,000 ML IV SCH (07:35)
[2017-02-19] MEDS: ASPIRIN EC 81 MG TABEC PO SCH (08:45)
[2017-02-19] MEDS: METHYLDOPA 500 MG TAB PO SCH (08:45)
[2017-02-19] MEDS: ATENOLOL 50 MG TAB PO SCH ×2 (08:45→21:00)
[2017-02-19] MEDS: LACTOBACILLUS ACIDOPHILUS TAB PO SCH (08:45)
[2017-02-19] MEDS: amLODIPine BESYLATE 5 MG TAB PO SCH (08:45)
[2017-02-19] MEDS: TOLTERODINE TARTRATE 2 MG CAP LA PO SCH (08:45)
[2017-02-19] MEDS: PANTOPRAZOLE SOD 20 MG DELAYED RELEASE TAB PO SCH (08:45)
[2017-02-19] MEDS: CALCIUM/VITAMIN D 250 MG/125 U TAB PO SCH (08:46)
[2017-02-19] MEDS: MORPHINE SULFATE 15 MG CONTROLLED RELEASE TAB PO SCH ×2 (08:46→21:00)
[2017-02-19] MEDS: SODIUM CHLORIDE 0.9% FLUSH 10 ML FLUSH IV FLUSH SCH ×2 (08:49→21:58)
[2017-02-19] MEDS ORDERED: OLMESARTAN 20 MG PO SCH (09:00)
[2017-02-19] MEDS ORDERED: NON-FORMULARY DRUG (Omega-3 Fatty Acids (Fish Oil 1000 mg) 1,000 MG) PO SCH (09:00)
--- NOTE | 2017-02-19 09:36 | HHI.PR ---
Subjective Remarks This is a pleasant 86 y/o female admitted 02/17/17 she has Chronic pain, Recurrent UTI, Hypertension, Hyperlipidemia, GERD, he was on Bactrim as outpatient for UTI, status post Fall/Syncope, workup started, also probable acute on chronic kidney injury, Rhabdomyolysis, Leukocytosis, Polypharmacy, seen in her bedroom in the presence of her Daughter Mrs. Marivel Blanco complaint of left hip pain, awaiting final recommendations by PT for discharge. blood pressure uncontrolled at this time, but was controlled in am will continue 02/19: Seen in her bedroom, in the presence of her Relative, she is set for Rehab facility for tomorrow, at this time stable no nausea, vomit or diarrhea. Objective Vital Signs Date Time Temp Pulse Resp B/P (MAP) Pulse Ox O2 Delivery O2 Flow Rate FiO2 02/19/17 08:00 97.7 70 18 141/71 (94) 95 02/19/17 04:00 98.3 67 16 146/66 (92) 95 02/19/17 01:54 147/63 (91) 02/19/17 00:00 98.4 74 16 183/77 (112) 95 02/18/17 20:00 98.9 17 181/79 (113) 95 02/18/17 16:00 99.0 95 18 186/81 (116) 93 02/18/17 12:00 98.2 84 18 138/85 (102) 93 I/O 02/18/17 02/18/17 02/18/17 02/19/17 02/19/17 02/19/17 07:00 15:00 23:00 07:00 15:00 23:00 Intake Total 480 ml 180 ml Balance 480 ml 180 ml Intake Oral 480 ml 180 ml # Voids 1 3 5 # Bowel Movements 4 Result Diagram: 02/19/17 0500 02/19/17 0500 Imaging Last Impressions Hip and Pelvis X-Ray 02/18/17 0000 Signed Impressions: Service Date/Time: Saturday, February 18, 2017 20:32 - CONCLUSION: No evidence of recent bony injury. Ken Hicks MD Head CT 02/17/17 1153 Signed Impressions: Service Date/Time: Friday, February 17, 2017 12:36 - CONCLUSION: No acute disease. Gal Mitchell MD Chest X-Ray 02/17/17 1153 Signed Impressions: Service Date/Time: Friday, February 17, 2017 12:49 - CONCLUSION: 1. No acute cardiopulmonary disease. Aleksandar Simpson MD Carotid Artery Ultrasound 02/17/17 0000 Signed Impressions: Service Date/Time: Friday, February 17, 2017 16:33 - CONCLUSION: There is moderate atherosclerotic disease. No definite two-dimensional or hemodynamic significant stenosis is identified. Gal Mitchell MD Procedures None Other Results Laboratory Tests Test 02/17/17 12:27 02/17/17 13:15 02/18/17 00:52 02/18/17 07:55 Prothrombin Time 10.5 SEC Prothromb Time International Ratio 1.0 RATIO Activated Partial Thromboplast Time 24.5 SEC Troponin I LESS THAN 0.02 NG/ML Urine Color YELLOW Urine Turbidity CLEAR Urine pH 5.5 Urine Specific [place] 1.017 Urine Protein NEG mg/dL Urine Glucose (UA) NEG mg/dL Urine Ketones NEG mg/dL Urine Occult Blood TRACE Urine Nitrite NEG Urine Bilirubin NEG Urine Urobilinogen 2.0 MG/DL Urine Leukocyte Esterase NEG Urine RBC 15 /hpf Urine WBC LESS THAN 1 /hpf Urine Hyaline Casts 3 /lpf Microscopic Urinalysis Comment CULT NOT INDICATED Urine Opiates Screen POS Urine Barbiturates Screen NEG Urine Amphetamines Screen NEG Urine Benzodiazepines Screen NEG Urine Cocaine Screen NEG Urine Cannabinoids Screen NEG Hemoglobin A1c 5.6 % Total Creatine Kinase 679 U/L Creatine Kinase MB 1.8 NG/ML Creatine Kinase MB % 0.3 % Blood Urea Nitrogen 38 MG/DL Creatinine 1.45 MG/DL Random Glucose 93 MG/DL Total Protein 6.0 GM/DL Albumin 2.8 GM/DL Calcium Level 8.4 MG/DL Alkaline Phosphatase 74 U/L Aspartate Amino Transf (AST/SGOT) 29 U/L Alanine Aminotransferase (ALT/SGPT) 24 U/L Total Bilirubin 0.7 MG/DL Sodium Level 138 MEQ/L Potassium Level 4.4 MEQ/L Chloride Level 108 MEQ/L Carbon Dioxide Level 22.4 MEQ/L Test 02/19/17 05:00 White Blood Count 9.8 TH/MM3 Red Blood Count 3.31 MIL/MM3 Hemoglobin 10.4 GM/DL Hematocrit 30.6 % Mean Corpuscular Volume 92.3 FL Mean Corpuscular Hemoglobin 31.4 PG Mean Corpuscular Hemoglobin Concent 34.0 % Red Cell Distribution Width 14.1 % Platelet Count 240 TH/MM3 Mean Platelet Volume 7.8 FL Neutrophils (%) (Auto) 73.7 % Lymphocytes (%) (Auto) 16.0 % Monocytes (%) (Auto) 8.1 % Eosinophils (%) (Auto) 1.9 % Basophils (%) (Auto) 0.3 % Neutrophils # (Auto) 7.2 TH/MM3 Lymphocytes # (Auto) 1.6 TH/MM3 Monocytes # (Auto) 0.8 TH/MM3 Eosinophils # (Auto) 0.2 TH/MM3 Basophils # (Auto) 0.0 TH/MM3 CBC Comment DIFF FINAL Differential Comment Blood Urea Nitrogen 24 MG/DL Creatinine 1.17 MG/DL Random Glucose 102 MG/DL Calcium Level 8.5 MG/DL Magnesium Level 2.2 MG/DL Sodium Level 139 MEQ/L Potassium Level 4.1 MEQ/L Chloride Level 107 MEQ/L Carbon Dioxide Level 23.1 MEQ/L Anion Gap 9 MEQ/L Estimat Glomerular Filtration Rate 44 ML/MIN Objective Remarks GENERAL: well developed patient in no acute distress. SKIN: No rashes, ecchymoses or lesions. Cool and dry. HEAD: Atraumatic. Normocephalic. No temporal or scalp tenderness. EYES: Pupils equal round and reactive. Extraocular motions intact. No scleral icterus. No injection or drainage. ENT: Nose without bleeding, purulent drainage or septal hematoma. Throat without erythema, tonsillar hypertrophy or exudate. Uvula midline. Airway patent. NECK: Trachea midline. No JVD or lymphadenopathy. Supple, nontender, no meningeal signs. CARDIOVASCULAR: Regular rate and rhythm without murmurs, gallops, or rubs. RESPIRATORY: Clear to auscultation. Breath sounds equal bilaterally. No wheezes , rales, or rhonchi. GASTROINTESTINAL: Abdomen soft, non-tender, nondistended. No hepato-splenomegaly , or palpable masses. No guarding. MUSCULOSKELETAL: Extremities without clubbing, cyanosis, or edema. No joint tenderness, effusion, or edema noted. No calf tenderness. Negative Homans sign bilaterally. NEUROLOGICAL: Awake and alert. No focal deficits. Medications and IVs Current Medications Medications (Trade) Dose Ordered Sig/Juan Route Start Time Stop Time Status Last Admin Sodium Chloride 1,000 ml @ 75 mls/hr [id number] IV 02/17/17 15:58 02/17/17 16:30 (NS Flush) 2 ml UNSCH PRN IV FLUSH 02/17/17 16:00 (NS Flush) 2 ml BID IV FLUSH 02/17/17 21:00 02/19/17 08:49 (Narcan Inj) 0.4 mg UNSCH PRN IV PUSH 02/17/17 16:00 (Milk Of Magnesia Liq) 30 ml Q12H PRN PO 02/17/17 16:00 (Senokot) 17.2 mg Q12H PRN PO 02/17/17 16:00 (Dulcolax Supp) 10 mg DAILY PRN RECTAL 02/17/17 16:00 (Lactulose Liq) 30 ml DAILY PRN PO 02/17/17 16:00 (Protonix) 20 mg DAILY PO 02/18/17 09:00 02/19/17 08:45 (Norvasc) 5 mg DAILY PO 02/19/17 09:00 02/19/17 08:45 (Ecotrin Ec) 81 mg DAILY PO 02/19/17 09:00 02/19/17 08:45 (Tenormin) 50 mg BID PO 02/18/17 21:00 02/19/17 08:45 (Lipitor) 20 mg HS PO 02/18/17 21:00 02/18/17 19:59 (Aldomet) 500 mg BID PO 02/18/17 21:00 02/19/17 08:45 (Remeron) 7.5 mg HS PO 02/18/17 21:00 02/18/17 19:58 (Oramorph Sr) 15 mg BID PO 02/18/17 21:00 02/19/17 08:46 (Oscal-D 250-125) 500 mg DAILY PO 02/19/17 09:00 02/19/17 08:46 (Lactinex) 1 tab DAILY PO 02/19/17 09:00 02/19/17 08:45 (Detrol La) 2 mg DAILY PO 02/19/17 09:00 02/19/17 08:45 (Pill Splitter) 1 ea UNSCH PRN OTHER 02/18/17 17:00 A/P Assessment and Plan 1. Status post fall/Syncopal episode, the patient complaint of weakness, following, Echocardiogram, Carotid US no pathology was suspected probable Polypharmacy, and Gabapentin toxicity on hold. 2. Acute Kidney Injury Improving, continue IV fluids, on hold SIMÓN inhibitors and diuretics. 3. Elevated CK improved. 4. Leukocytosis improved no signs of infection 5. Polypharmacy will continue her Home Narcotics to avoid withdrawal, 6. Urinary incontinence on hold Detrol and following. 7. Hypertension controlled removed also Methyldopa //GERD. Chronic. Continue PPI Discussed Condition With patient and her relative in the room. Discharge Planning Discharge in am tomorrow. Jesus Oneal MD Feb 19, 2017 09:36
[2017-02-19] MEDS: MIRTAZAPINE 15 MG TAB PO SCH (21:57)
[2017-02-19] MEDS: ATORVASTATIN 20 MG TAB PO SCH (21:57)
[2017-02-20] VITALS (7 sets, daily range): BP systolic 127–193; BP diastolic 59–77; PULSE 58–71; RESP 16–20; TEMP 97.6–98.9; O2SAT 94–97
[2017-02-20] MEDS: TOLTERODINE TARTRATE 2 MG CAP LA PO SCH (08:15)
[2017-02-20] MEDS: LACTOBACILLUS ACIDOPHILUS TAB PO SCH (08:16)
[2017-02-20] MEDS: CALCIUM/VITAMIN D 250 MG/125 U TAB PO SCH (08:16)
[2017-02-20] MEDS: amLODIPine BESYLATE 5 MG TAB PO SCH (08:17)
[2017-02-20] MEDS: ASPIRIN EC 81 MG TABEC PO SCH (08:17)
[2017-02-20] MEDS: MORPHINE SULFATE 15 MG CONTROLLED RELEASE TAB PO SCH ×2 (08:18→20:34)
[2017-02-20] MEDS: ATENOLOL 50 MG TAB PO SCH ×2 (08:18→20:33)
[2017-02-20] MEDS: SODIUM CHLORIDE 0.9% FLUSH 10 ML FLUSH IV FLUSH SCH ×2 (08:19→20:34)
[2017-02-20] MEDS: PANTOPRAZOLE SOD 20 MG DELAYED RELEASE TAB PO SCH (08:19)
--- NOTE | 2017-02-20 10:00 | HHI.PR ---
Subjective Remarks This is a pleasant 86 y/o female admitted 02/17/17 she has Chronic pain, Recurrent UTI, Hypertension, Hyperlipidemia, GERD, he was on Bactrim as outpatient for UTI, status post Fall/Syncope, workup started, also probable acute on chronic kidney injury, Rhabdomyolysis, Leukocytosis, Polypharmacy, seen in her bedroom in the presence of her Daughter Mrs. Marivel Blanco complaint of left hip pain, awaiting final recommendations by PT for discharge. blood pressure uncontrolled at this time, but was controlled in am will continue 02/19: Seen in her bedroom, in the presence of her Relative, she is set for Rehab facility for tomorrow. 02/20: Stable no nausea, vomit or diarrhea ready for discharge to SNF, as per Warehouse Distribution Manager will discharge today. Objective Vital Signs Date Time Temp Pulse Resp B/P (MAP) Pulse Ox O2 Delivery O2 Flow Rate FiO2 02/20/17 07:42 98.5 65 20 168/74 (105) 97 02/20/17 04:00 98.4 60 16 147/72 (97) 94 02/20/17 00:00 97.6 58 16 127/59 (81) 94 02/19/17 20:14 98.1 62 18 97/45 (62) 92 02/19/17 16:00 98.0 63 18 100/49 (66) 93 02/19/17 12:00 97.4 67 18 108/76 (87) 92 I/O 02/19/17 02/19/17 02/19/17 02/20/17 02/20/17 02/20/17 07:00 15:00 23:00 07:00 15:00 23:00 Intake Total 180 ml 480 ml 120 ml Balance 180 ml 480 ml 120 ml Intake Oral 180 ml 480 ml 120 ml # Voids 5 2 3 # Bowel Movements 1 Result Diagram: 02/19/17 0500 02/19/17 0500 Imaging Last Impressions Hip and Pelvis X-Ray 02/18/17 0000 Signed Impressions: Service Date/Time: Saturday, February 18, 2017 20:32 - CONCLUSION: No evidence of recent bony injury. Ken Hicks MD Head CT 02/17/17 1153 Signed Impressions: Service Date/Time: Friday, February 17, 2017 12:36 - CONCLUSION: No acute disease. Gal Mitchell MD Chest X-Ray 02/17/17 1153 Signed Impressions: Service Date/Time: Friday, February 17, 2017 12:49 - CONCLUSION: 1. No acute cardiopulmonary disease. Aleksandar Simpson MD Carotid Artery Ultrasound 02/17/17 0000 Signed Impressions: Service Date/Time: Friday, February 17, 2017 16:33 - CONCLUSION: There is moderate atherosclerotic disease. No definite two-dimensional or hemodynamic significant stenosis is identified. Gal Mitchell MD Procedures None Other Results Laboratory Tests Test 02/17/17 12:27 02/17/17 13:15 02/18/17 00:52 02/18/17 07:55 Prothrombin Time 10.5 SEC Prothromb Time International Ratio 1.0 RATIO Activated Partial Thromboplast Time 24.5 SEC Troponin I LESS THAN 0.02 NG/ML Urine Color YELLOW Urine Turbidity CLEAR Urine pH 5.5 Urine Specific [place] 1.017 Urine Protein NEG mg/dL Urine Glucose (UA) NEG mg/dL Urine Ketones NEG mg/dL Urine Occult Blood TRACE Urine Nitrite NEG Urine Bilirubin NEG Urine Urobilinogen 2.0 MG/DL Urine Leukocyte Esterase NEG Urine RBC 15 /hpf Urine WBC LESS THAN 1 /hpf Urine Hyaline Casts 3 /lpf Microscopic Urinalysis Comment CULT NOT INDICATED Urine Opiates Screen POS Urine Barbiturates Screen NEG Urine Amphetamines Screen NEG Urine Benzodiazepines Screen NEG Urine Cocaine Screen NEG Urine Cannabinoids Screen NEG Hemoglobin A1c 5.6 % Total Creatine Kinase 679 U/L Creatine Kinase MB 1.8 NG/ML Creatine Kinase MB % 0.3 % Blood Urea Nitrogen 38 MG/DL Creatinine 1.45 MG/DL Random Glucose 93 MG/DL Total Protein 6.0 GM/DL Albumin 2.8 GM/DL Calcium Level 8.4 MG/DL Alkaline Phosphatase 74 U/L Aspartate Amino Transf (AST/SGOT) 29 U/L Alanine Aminotransferase (ALT/SGPT) 24 U/L Total Bilirubin 0.7 MG/DL Sodium Level 138 MEQ/L Potassium Level 4.4 MEQ/L Chloride Level 108 MEQ/L Carbon Dioxide Level 22.4 MEQ/L Test 02/19/17 05:00 White Blood Count 9.8 TH/MM3 Red Blood Count 3.31 MIL/MM3 Hemoglobin 10.4 GM/DL Hematocrit 30.6 % Mean Corpuscular Volume 92.3 FL Mean Corpuscular Hemoglobin 31.4 PG Mean Corpuscular Hemoglobin Concent 34.0 % Red Cell Distribution Width 14.1 % Platelet Count 240 TH/MM3 Mean Platelet Volume 7.8 FL Neutrophils (%) (Auto) 73.7 % Lymphocytes (%) (Auto) 16.0 % Monocytes (%) (Auto) 8.1 % Eosinophils (%) (Auto) 1.9 % Basophils (%) (Auto) 0.3 % Neutrophils # (Auto) 7.2 TH/MM3 Lymphocytes # (Auto) 1.6 TH/MM3 Monocytes # (Auto) 0.8 TH/MM3 Eosinophils # (Auto) 0.2 TH/MM3 Basophils # (Auto) 0.0 TH/MM3 CBC Comment DIFF FINAL Differential Comment Blood Urea Nitrogen 24 MG/DL Creatinine 1.17 MG/DL Random Glucose 102 MG/DL Calcium Level 8.5 MG/DL Magnesium Level 2.2 MG/DL Sodium Level 139 MEQ/L Potassium Level 4.1 MEQ/L Chloride Level 107 MEQ/L Carbon Dioxide Level 23.1 MEQ/L Anion Gap 9 MEQ/L Estimat Glomerular Filtration Rate 44 ML/MIN Alkaline Phosphatase 74 U/L Objective Remarks GENERAL: well developed patient in no acute distress. SKIN: No rashes, ecchymoses or lesions. Cool and dry. HEAD: Atraumatic. Normocephalic. No temporal or scalp tenderness. EYES: Pupils equal round and reactive. Extraocular motions intact. No scleral icterus. No injection or drainage. ENT: Nose without bleeding, purulent drainage or septal hematoma. Throat without erythema, tonsillar hypertrophy or exudate. Uvula midline. Airway patent. NECK: Trachea midline. No JVD or lymphadenopathy. Supple, nontender, no meningeal signs. CARDIOVASCULAR: Regular rate and rhythm without murmurs, gallops, or rubs. RESPIRATORY: Clear to auscultation. Breath sounds equal bilaterally. No wheezes , rales, or rhonchi. GASTROINTESTINAL: Abdomen soft, non-tender, nondistended. No hepato-splenomegaly , or palpable masses. No guarding. MUSCULOSKELETAL: Extremities without clubbing, cyanosis, or edema. No joint tenderness, effusion, or edema noted. No calf tenderness. Negative Homans sign bilaterally. NEUROLOGICAL: Awake and alert. No focal deficits. Medications and IVs Current Medications Medications (Trade) Dose Ordered Sig/Juan Route Start Time Stop Time Status Last Admin (NS Flush) 2 ml UNSCH PRN IV FLUSH 02/17/17 16:00 (NS Flush) 2 ml BID IV FLUSH 02/17/17 21:00 02/20/17 08:19 (Narcan Inj) 0.4 mg UNSCH PRN IV PUSH 02/17/17 16:00 (Milk Of Magnesia Liq) 30 ml Q12H PRN PO 02/17/17 16:00 (Senokot) 17.2 mg Q12H PRN PO 02/17/17 16:00 (Dulcolax Supp) 10 mg DAILY PRN RECTAL 02/17/17 16:00 (Lactulose Liq) 30 ml DAILY PRN PO 02/17/17 16:00 (Protonix) 20 mg DAILY PO 02/18/17 09:00 02/20/17 08:19 (Norvasc) 5 mg DAILY PO 02/19/17 09:00 02/20/17 08:17 (Ecotrin Ec) 81 mg DAILY PO 02/19/17 09:00 02/20/17 08:17 (Tenormin) 50 mg BID PO 02/18/17 21:00 02/20/17 08:18 (Lipitor) 20 mg HS PO 02/18/17 21:00 02/19/17 21:57 (Remeron) 7.5 mg HS PO 02/18/17 21:00 02/19/17 21:57 (Oramorph Sr) 15 mg BID PO 02/18/17 21:00 02/20/17 08:18 (Oscal-D 250-125) 500 mg DAILY PO 02/19/17 09:00 02/20/17 08:16 (Lactinex) 1 tab DAILY PO 02/19/17 09:00 02/20/17 08:16 (Detrol La) 2 mg DAILY PO 02/19/17 09:00 02/20/17 08:15 (Pill Splitter) 1 ea UNSCH PRN OTHER 02/18/17 17:00 A/P Assessment and Plan 1. Status post fall/Syncopal episode, the patient complaint of weakness, following, Echocardiogram, Carotid US no pathology was suspected probable Polypharmacy, will continue to hold ARB and increased Amlodipine to 10 mg Daily. 2. Acute Kidney Injury creatinine trending down almost at baseline. 3. Elevated CK improved. 4. Leukocytosis improved no signs of infection 5. Polypharmacy will continue her Home Narcotics to avoid withdrawal. 6. Urinary incontinence re started Detrol. 7. Hypertension mild uncontrol will increase Amlodipine 10 mg daily. //GERD. Chronic. Continue PPI Discussed Condition With patient and Warehouse Distribution Manager. Discharge Planning Discharge to today. Jesus Oneal MD Feb 20, 2017 10:00
[2017-02-20] MEDS ORDERED: MS C15TA7 PO (12:12)
[2017-02-20] MEDS ORDERED: AMLO5 PO (12:12)
--- NOTE | 2017-02-20 12:20 | HHI.DS ---
Discharge Summary Admission Date Feb 17, 2017 at 16:28 Discharge Date: Feb 20, 2017 Admitting Diagnosis Syncope/Unable to Ambulate/Increased Creatinine (1) Syncope and collapse ICD Code: R55 - Syncope and collapse Diagnosis: Principal Status: Acute Procedures None Brief History - From Admission 86-year-old female with a history of chronic pain, recurrent UTIs, hypertension , hyperlipidemia, GERD, who presents having been found by daughter this morning around 5 AM. Vision is a poor historian. She says she was lightheaded last night, and is not sure what happened. She does say that she began Bactrim for a supposed UTI on Monday, her symptoms being increased urination, without dysuria. Says that increased urination has improved. She denies any fevers, chills, chest pain, shortness of breath. She does report some lightheadedness walking to the bathroom with assistance today. She denies taking any extra pain medication, however cannot tell me exactly how much medication she takes. I spoke with daughter outside room and she said that patient may have been taking Dilaudid that she was prescribed in the past for pain. CBC/BMP: 02/19/17 0500 02/19/17 0500 Significant Findings Laboratory Tests Test 02/17/17 12:27 02/17/17 13:15 02/17/17 19:57 02/18/17 00:52 White Blood Count 15.3 TH/MM3 (4.0-11.0) Red Blood Count 3.75 MIL/MM3 (4.00-5.30) Neutrophils (%) (Auto) 82.1 % (16.0-70.0) Neutrophils # (Auto) 12.5 TH/MM3 (1.8-7.7) Blood Urea Nitrogen 46 MG/DL (7-18) Creatinine 2.04 MG/DL (0.50-1.00) Random Glucose 124 MG/DL (74-106) Albumin 3.1 GM/DL (3.4-5.0) Calcium Level 8.3 MG/DL (8.5-10.1) Magnesium Level 2.7 MG/DL (1.5-2.5) Sodium Level 135 MEQ/L (136-145) Anion Gap 4 MEQ/L (5-15) Estimat Glomerular Filtration Rate 23 ML/MIN (>89) Total Creatine Kinase 665 U/L (26-192) 775 U/L (26-192) 679 U/L (26-192) Troponin I LESS THAN 0.02 NG/ML Urine Occult Blood TRACE (NEG) Urine RBC 15 /hpf (0-3) Urine Opiates Screen POS (NEG) Test 02/18/17 07:55 02/19/17 05:00 Red Blood Count 3.31 MIL/MM3 (4.00-5.30) 3.31 MIL/MM3 (4.00-5.30) Hemoglobin 10.4 GM/DL (11.6-15.3) 10.4 GM/DL (11.6-15.3) Hematocrit 30.9 % (35.0-46.0) 30.6 % (35.0-46.0) Neutrophils (%) (Auto) 80.8 % (16.0-70.0) 73.7 % (16.0-70.0) Neutrophils # (Auto) 8.6 TH/MM3 (1.8-7.7) Blood Urea Nitrogen 38 MG/DL (7-18) 24 MG/DL (7-18) Creatinine 1.45 MG/DL (0.50-1.00) 1.17 MG/DL (0.50-1.00) Total Protein 6.0 GM/DL (6.4-8.2) Albumin 2.8 GM/DL (3.4-5.0) Calcium Level 8.4 MG/DL (8.5-10.1) Chloride Level 108 MEQ/L (98-107) Estimat Glomerular Filtration Rate 34 ML/MIN (>89) 44 ML/MIN (>89) Monocytes (%) (Auto) 8.1 % (0.0-8.0) Imaging Last Impressions Hip and Pelvis X-Ray 02/18/17 0000 Signed Impressions: Service Date/Time: Saturday, February 18, 2017 20:32 - CONCLUSION: No evidence of recent bony injury. Ken Hicks MD Head CT 02/17/17 1153 Signed Impressions: Service Date/Time: Friday, February 17, 2017 12:36 - CONCLUSION: No acute disease. Gal Mitchell MD Chest X-Ray 02/17/17 1153 Signed Impressions: Service Date/Time: Friday, February 17, 2017 12:49 - CONCLUSION: 1. No acute cardiopulmonary disease. Aleksandar Simpson MD Carotid Artery Ultrasound 02/17/17 0000 Signed Impressions: Service Date/Time: Friday, February 17, 2017 16:33 - CONCLUSION: There is moderate atherosclerotic disease. No definite two-dimensional or hemodynamic significant stenosis is identified. Gal Mitchell MD PE at Discharge GENERAL: well developed patient in no acute distress. SKIN: No rashes, ecchymoses or lesions. Cool and dry. HEAD: Atraumatic. Normocephalic. No temporal or scalp tenderness. EYES: Pupils equal round and reactive. Extraocular motions intact. No scleral icterus. No injection or drainage. ENT: Nose without bleeding, purulent drainage or septal hematoma. Throat without erythema, tonsillar hypertrophy or exudate. Uvula midline. Airway patent. NECK: Trachea midline. No JVD or lymphadenopathy. Supple, nontender, no meningeal signs. CARDIOVASCULAR: Regular rate and rhythm without murmurs, gallops, or rubs. RESPIRATORY: Clear to auscultation. Breath sounds equal bilaterally. No wheezes , rales, or rhonchi. GASTROINTESTINAL: Abdomen soft, non-tender, nondistended. No hepato-splenomegaly , or palpable masses. No guarding. MUSCULOSKELETAL: Extremities without clubbing, cyanosis, or edema. No joint tenderness, effusion, or edema noted. No calf tenderness. Negative Homans sign bilaterally. NEUROLOGICAL: Awake and alert. No focal deficits. Hospital Course This is a pleasant 86 y/o female admitted 02/17/17 she has Chronic pain, Recurrent UTI, Hypertension, Hyperlipidemia, GERD, he was on Bactrim as outpatient for UTI, status post Fall/Syncope, workup started, also probable acute on chronic kidney injury, Rhabdomyolysis, Leukocytosis, Polypharmacy, seen in her bedroom in the presence of her Daughter Mrs. Marivel Blanco complaint of left hip pain, awaiting final recommendations by PT for discharge. blood pressure uncontrolled at this time, but was controlled in am will continue 02/19: Seen in her bedroom, in the presence of her Relative, she is set for Rehab facility for tomorrow. 02/20: Stable no nausea, vomit or diarrhea ready for discharge to SNF, as per Technical Photographer will discharge today. Assessment and Plan 1. Status post fall/Syncopal episode, the patient complaint of weakness, following, Echocardiogram, Carotid US no pathology was suspected probable Polypharmacy, will continue to hold ARB and increased Amlodipine to 10 mg Daily. 2. Acute Kidney Injury creatinine trending down almost at baseline. 3. Elevated CK improved. 4. Leukocytosis improved no signs of infection 5. Polypharmacy will continue her Home Narcotics to avoid withdrawal. 6. Urinary incontinence re started Detrol. 7. Hypertension mild uncontrol will increase Amlodipine 10 mg daily. //GERD. Chronic. Continue PPI Discussed Condition With patient and Technical Photographer. Discharge Planning Discharge to SNF today. Pt Condition on Discharge: Good Discharge Disposition: Discharge to SNF Discharge Time: <= 30 minutes Discharge Instructions DIET: Follow Instructions for: Heart Healthy Diet Activities you can perform: Regular-No Restrictions Jesus Oneal MD Feb 20, 2017 12:20
[2017-02-20] MEDS ORDERED: amLODIPine BESYLATE 5 MG TAB PO ONE (13:00)
[2017-02-20] MEDS: cloNIDine HCL 0.1 MG TAB PO PRN ×2 (14:09→23:48)
[2017-02-20] MEDS: ATORVASTATIN 20 MG TAB PO SCH (20:34)
[2017-02-20] MEDS: MIRTAZAPINE 15 MG TAB PO SCH (20:34)
[2017-02-21] VITALS: BP 169/77; PULSE 71; RESP 20; TEMP 98.3; O2SAT 95
[2017-02-21 04:45] VITALS: BP 175/74; PULSE 68; RESP 20; TEMP 98.6; O2SAT 96
[2017-02-21] MEDS: cloNIDine HCL 0.1 MG TAB PO PRN (05:06)
[2017-02-21 07:38] VITALS: BP 127/63; PULSE 69; RESP 18; TEMP 98.7; O2SAT 93
[2017-02-21] MEDS: LACTOBACILLUS ACIDOPHILUS TAB PO SCH (08:32)
[2017-02-21] MEDS: ATENOLOL 50 MG TAB PO SCH (08:32)
[2017-02-21] MEDS: CALCIUM/VITAMIN D 250 MG/125 U TAB PO SCH (08:33)
[2017-02-21] MEDS: MORPHINE SULFATE 15 MG CONTROLLED RELEASE TAB PO SCH (08:33)
[2017-02-21] MEDS: PANTOPRAZOLE SOD 20 MG DELAYED RELEASE TAB PO SCH (08:33)
[2017-02-21] MEDS: ASPIRIN EC 81 MG TABEC PO SCH (08:34)
[2017-02-21] MEDS: TOLTERODINE TARTRATE 2 MG CAP LA PO SCH (08:34)
[2017-02-21] MEDS: amLODIPine BESYLATE 5 MG TAB PO SCH (08:35)
[2017-02-21] MEDS: SODIUM CHLORIDE 0.9% FLUSH 10 ML FLUSH IV FLUSH SCH (08:35)
[2017-02-21] MEDS ORDERED: AMLO5TAB2 PO (09:58)
[2017-02-21] MEDS ORDERED: METH500T PO (09:58)
[2017-02-21] MEDS ORDERED: amLODIPine BESYLATE 5 MG TAB PO ONE (10:00)
[2017-02-21] MEDS ORDERED: METHYLDOPA 500 MG TAB PO SCH (12:00)
[2017-02-21 12:04] VITALS: BP 144/63; PULSE 63; RESP 18; TEMP 97.9; O2SAT 95
[2017-02-22] MEDS ORDERED: amLODIPine BESYLATE 5 MG TAB PO SCH ×2 (09:00)
== END 2017-02-21 12:54 | DRG 683 ==
LOC: NEPC 11:39 → NEDA 15:59 → OBSVTOIN 16:28 → N05B 18:14
PROVIDERS: ADMIT Internal Medicine; ATTEND Internal Medicine
DX: N17.9 Acute kidney failure, unspecified (principal); M62.82 Rhabdomyolysis; E86.0 Dehydration; T42.6X1A Poisoning by other antiepileptic and sedative-hypnotic drugs, accidental (unintentional), initial encounter; R55 Syncope and collapse; E78.5 Hyperlipidemia, unspecified; K21.9 Gastro-esophageal reflux disease without esophagitis; R32 Unspecified urinary incontinence; N18.9 Chronic kidney disease, unspecified; I12.9 Hypertensive chronic kidney disease with stage 1 through stage 4 chronic kidney disease, or unspecified chronic kidney disease; Z88.1 Allergy status to other antibiotic agents; Z91.14 Patient's other noncompliance with medication regimen; Z96.649 Presence of unspecified artificial hip joint
CPT/HCPCS: 70450; 71010; 73501; 80048; 80053; 80171; 80307; 81001; 82550; 82552; 83036; 83735; 84075; 84484; 85025; 85610; 85730; 93005; 93880; 96360; 96361; J7040; P9612